=== PATIENT | male | born 1955 | race Caucasian/White ===

== ENCOUNTER 2021-02-13 10:34 | Emergency (ER) | payer MEDICARE, BC ==
[2021-02-13] MEDS ORDERED: Sodium Chloride 0.9% 1000 ML 1,000 ML ONE (11:16)
[2021-02-13] MEDS ORDERED: TYLENOL EXTRA STRENGTH 500 MG ONE (11:16)
[2021-02-13] MEDS ORDERED: Sodium Chloride 0.9% 1000 ML 1,000 ML IV STA (11:19)
[2021-02-13] MEDS ORDERED: TYLENOL 325 MG PO ONE (11:19)
--- NOTE | 2021-02-13 12:02 | XRAY ---
Indication: Fever. Comparison: None Portable apical lordotic chest is slightly underinflated and clear. Heart not enlarged. Bony thorax intact with mild osteopenia and degenerative changes. Impression: Nonacute chest with chronic bony findings.
[2021-02-13 12:13] LABS: Hematocrit 45.2 % (42-50); Hemoglobin 17.3 gm/dl (12.5-18.0); Mean Cell Volume 93.2 fl (78-100); Mean Corpuscular Hemoglobin 35.7 pg (26-32); Mean Corpuscular Hgb Concent. 38.3 g/dl (32-36); Mean Platelet Volume 11.3 fl (7.5-11.0); Platelet Count 87 K/mm3 (150-450); Red Blood Count 4.85 M/mm3 (4.1-5.6); Red Cell Distribution Width 12.5 % (11.5-14.0); White Blood Count 2.9 K/mm3 (4.0-10.5)
[2021-02-13 12:17] VITALS: O2SAT 97
[2021-02-13 12:17] LABS: ALBUMIN 3.7 g/dL (3.5-5.0); ALKALINE PHOSPHATASE 40 U/L (38-126); ANION GAP 15.2 MEQ/L (5-15); BLOOD UREA NITROGEN 21 mg/dL (9-20); CHLORIDE 96 mmol/L (98-107); Calcium 8.9 mg/dL (8.4-10.2); Carbon Dioxide 21 mmol/L (22-30); Creatinine 1 0.98 mg/dL (0.66-1.25); EST GLOMERULAR FILTRATION RATE > 60.0 ML/MIN; Glucose 341 mg/dL (74-106); Potassium 4.3 mmol/L (3.5-5.1); SGOT/AST 62 U/L (17-59); SGPT/ALT 45 U/L (0-50); SODIUM 128 mmol/L (137-145); Total Protein 6.3 g/dL (6.3-8.2)
[2021-02-13 12:28] LABS: INFLUENZA A NEGATIVE (NEGATIVE); INFLUENZA B NEGATIVE (NEGATIVE)
--- NOTE | 2021-02-13 12:37 | ERPHSYRPT ---
- History of Present Illness Time Seen by Provider: 02/13/21 10:39 Source: patient Exam Limitations: no limitations Patient Subjective Stated Complaint: pt here for fever, weakness, and aches for 2 since last friday, Triage Nursing Assessment: pt alert, resp easy, skin w/d/p. abd soft, edema to lower legs, skin w/d/p Physician History: 65 years old male with history of hypertension, hyperlipidemia, diabetes mellitus, unvaccinated against COVID-19 presented in the ER with 4 days history of generalized weakness fatigue tiredness, minimal now productive cough, body aches with decreased oral intake. Denies any abdominal pain nausea vomiting or diarrhea. No chest pain but some soreness. No difficulty breathing. Patient also reports having fever and chills with a T-max of 103 prior to arrival and took some Advil and currently 101. Denies any known sick contact. Timing/Duration: day(s) (4), constant, gradual onset, worse Cough Quality/Degree: moderate, dry cough Possible Cause: unknown cause Modifying Factors: Worsens With: coughing Associated Symptoms: fever, chills, chest pain/soreness, cough, muscle aches, nasal congestion, sore throat, No shortness of breath Allergies/Adverse Reactions: No Known Drug Allergies Allergy (Unverified 02/13/21 11:26) Home Medications: Empagliflozin [Jardiance] 1 ea DAILY 02/13/21 [History] Glipizide/Metformin HCl [Glipizide-Metformin 2.5-250 mg] 1 ea DAILY 02/13/21 [History] Lisinopril 10 mg [Zestril 10 MG] 1 ea DAILY 02/13/21 [History] Hx Tetanus, Diphtheria Vaccination/Date Given: No Hx Influenza Vaccination/Date Given: No Hx Pneumococcal Vaccination/Date Given: No Immunizations Up to Date: Yes Travel Risk - International Travel Have you traveled outside of the country in past 3 weeks: No - Coronavirus Screening Are you exhibiting any of the following symptoms?: Yes Symptoms: Fever, Cough: New Onset, Headaches/Body Aches/Fatigue Close contact with a COVID-19 positive Pt in past 14-21 Days: No - Vaccine Status Have you recieved a Covid-19 vaccination: No - Review of Systems Constitutional: Fever, Chills, Fatigue, Weakness Eyes: No Symptoms Ears, Nose, & Throat: Nose Congestion, Throat Pain Respiratory: Cough, No Dyspnea, No Dyspnea on Exertion (CANO), No Wheezing Cardiac: No Palpitations, No Orthopnea Abdominal/Gastrointestinal: No Symptoms Genitourinary Symptoms: No Symptoms Musculoskeletal: Myalgias Skin: No Symptoms Neurological: No Symptoms Psychological: No Symptoms Endocrine: No Symptoms Hematologic/Lymphatic: No Symptoms Immunological/Allergic: No Symptoms - Past Medical History Pertinent Past Medical History: Yes Cardiac History: Hypertension Endocrine Medical History: Diabetes Type II - Past Surgical History Past Surgical History: No - Social History Smoking Status: Never smoker Exposure to second hand smoke: No Drug Use: none Patient Lives Alone: No - Nursing Vital Signs Nursing Vital Signs: Initial Vital Signs Temperature 102.2 F 02/13/21 11:25 Pulse Rate 84 02/13/21 11:25 Respiratory Rate 18 02/13/21 11:25 Blood Pressure 135/80 02/13/21 11:25 O2 Sat by Pulse Oximetry 93 L 02/13/21 11:25 Pain Scale Pain Intensity 0 - Physical Exam General Appearance: no apparent distress, alert Eye Exam: PERRL/EOMI, eyes nml inspection Ears, Nose, Throat Exam: normal ENT inspection, pharynx normal Neck Exam: normal inspection, non-tender, supple, full range of motion Respiratory Exam: normal breath sounds, lungs clear Cardiovascular Exam: regular rate/rhythm, normal heart sounds Gastrointestinal/Abdomen Exam: soft, normal bowel sounds, No tenderness Back Exam: normal inspection, normal range of motion Extremity Exam: normal inspection, normal range of motion, pelvis stable Neurologic Exam: alert, oriented x 3, cooperative, 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, normal mood/affect Skin Exam: normal color SpO2 Interpretation: normal SpO2: 97 O2 Delivery: Room Air Ordered Tests: Active Orders 24 hr Category Date Time Status EKG-ER Only STAT Care 02/13/21 11:19 Active IV Insertion STAT Care 02/13/21 11:19 Active CHEST 1 VIEW (PORTABLE) Stat Exams 02/13/21 11:19 Completed BLOOD CULTURE Stat Lab 02/13/21 11:40 Received CBC W DIFF Stat Lab 02/13/21 11:15 Completed CMP Stat Lab 02/13/21 11:15 Completed INFLUENZA A+B JONY Stat Lab 02/13/21 11:33 Completed Lactic Acid Stat Lab 02/13/21 11:35 Completed Manual Differential NC Stat Lab 02/13/21 11:15 Completed TROPONIN Q3H Lab 02/13/21 11:15 Completed TROPONIN Q3H Lab 02/13/21 14:30 Ordered TROPONIN Q3H Lab 02/13/21 17:30 Ordered TROPONIN Q3H Lab 02/13/21 20:30 Ordered TROPONIN Q3H Lab 02/13/21 23:30 Ordered UA W/RFX UR CULTURE Stat Lab 02/13/21 11:19 Ordered Medication Summary Discontinued Medications Generic Name Dose Route Start Last Admin Trade Name Shirley PRN Reason Stop Dose Admin Acetaminophen Confirm 02/13/21 11:16 Acetaminophen 500 Mg Tablet Administered 02/13/21 11:17 Dose 1,000 mg .ROUTE .STK-MED ONE Acetaminophen 975 mg 02/13/21 11:19 02/13/21 11:29 Acetaminophen 325 Mg Tablet PO 02/13/21 11:20 975 mg STAT ONE Administration Sodium Chloride Confirm 02/13/21 11:16 Sodium Chloride 0.9% 1000 Ml Administered 02/13/21 11:17 Dose 1,000 mls @ ud .ROUTE .STK-MED ONE Sodium Chloride 1,000 mls @ 499 mls/hr 02/13/21 11:19 02/13/21 11:29 Sodium Chloride 0.9% 1000 Ml IV 02/13/21 13:19 499 mls/hr .Q2H1M STA Administration Lab/Rad Data: Laboratory Result Diagrams 02/13/21 11:15 02/13/21 11:15 Laboratory Results 02/13/21 02/13/21 02/13/21 Range/Units 11:35 11:33 11:15 WBC (4.0-10.5) K/mm3 RBC (4.1-5.6) M/mm3 Hgb (12.5-18.0) gm/dl Hct (42-50) % MCV (78-100) fl MCH (26-32) pg MCHC (32-36) g/dl RDW (11.5-14.0) % Plt Count (150-450) K/mm3 MPV (7.5-11.0) fl Sodium (137-145) mmol/L Potassium (3.5-5.1) mmol/L Chloride (98-107) mmol/L Carbon Dioxide (22-30) mmol/L Anion Gap (5-15) MEQ/L BUN (9-20) mg/dL Creatinine (0.66-1.25) mg/dL Estimated GFR ML/MIN Glucose (74-106) mg/dL Lactic Acid 1.4 (0.4-2.0) Calcium (8.4-10.2) mg/dL Total Bilirubin (0.2-1.3) mg/dL AST (17-59) U/L ALT (0-50) U/L Alkaline Phosphatase (38-126) U/L Troponin I 0.015 (0.000-0.034) ng/mL Serum Total Protein (6.3-8.2) g/dL Albumin (3.5-5.0) g/dL Influenza Type A Ag NEGATIVE (NEGATIVE) Influenza Type B Ag NEGATIVE (NEGATIVE) 02/13/21 02/13/21 Range/Units 11:15 11:15 WBC 2.9 L (4.0-10.5) K/mm3 RBC 4.85 (4.1-5.6) M/mm3 Hgb 17.3 (12.5-18.0) gm/dl Hct 45.2 (42-50) % MCV 93.2 (78-100) fl MCH 35.7 H (26-32) pg MCHC 38.3 H (32-36) g/dl RDW 12.5 (11.5-14.0) % Plt Count 87 L (150-450) K/mm3 MPV 11.3 H (7.5-11.0) fl Sodium 128 L (137-145) mmol/L Potassium 4.3 (3.5-5.1) mmol/L Chloride 96 L (98-107) mmol/L Carbon Dioxide 21 L (22-30) mmol/L Anion Gap 15.2 H (5-15) MEQ/L BUN 21 H (9-20) mg/dL Creatinine 0.98 (0.66-1.25) mg/dL Estimated GFR > 60.0 ML/MIN Glucose 341 H (74-106) mg/dL Lactic Acid (0.4-2.0) Calcium 8.9 (8.4-10.2) mg/dL Total Bilirubin 0.60 (0.2-1.3) mg/dL AST 62 H (17-59) U/L ALT 45 (0-50) U/L Alkaline Phosphatase 40 (38-126) U/L Troponin I (0.000-0.034) ng/mL Serum Total Protein 6.3 (6.3-8.2) g/dL Albumin 3.7 (3.5-5.0) g/dL Influenza Type A Ag (NEGATIVE) Influenza Type B Ag (NEGATIVE) - Progress Progress: improved Air Movement: good Progress Note: 02/13/21 13:46 65 years old is evaluated for multiple flulike symptoms with decreased oral intake. Given fluid bolus and Tylenol and temperature improved to 98. Patient is feeling better on reevaluation. CBC consistent with Covid and chemistry profile shows some dehydration. Patient is not having any abdominal pain nausea or vomiting. No difficulty breathing and maintaining oxygen saturation at room air Rela around 95%. Patient is unvaccinated and I have offered him antibody infusion therapy which he refused. I will obtain Covid 19 test outpatient. Patient is advised to follow contact/droplet precautions and outpatient follow- up with primary care. Discussed signs symptoms of worsening needing return to ER which he seems understanding. Stable for discharge at this point. Blood Culture(s) Obtained: Yes Antibiotics given: No Counseled pt/family regarding: lab results, diagnosis, need for follow-up, rad results - Departure Departure Disposition: Home Clinical Impression: COVID-19, Viral syndrome, Hyperglycemia, Dehydration Condition: Stable Critical Care Time: No Referrals: DINO DEL VALLE MD [Primary Care Provider] - Follow up/PCP as directed (In1- 2 days for reevaluation.) Instructions: Fever, Adult (DC), Coronavirus Disease 2019 (COVID-19) (DC) Additional Instructions: Monitor your blood sugar regularly, keep a log and follow-up with primary care. Drink plenty of fluids. Take Tylenol as needed for aches and pains/fev er/chills. Return to ER if having worsening cough, difficulty breathing or inability to have much oral intake. Follow-up with primary care for reevaluation in 1 to 2 days.
[2021-02-13 13:08] VITALS: BP 102/61; PULSE 75
[2021-02-13] MEDS ORDERED: HUMULIN R SQ ONE (13:49)
[2021-02-13] MEDS ORDERED: HUMULIN R ONE (13:56)
[2021-02-13 14:24] LABS: BAND 7 % (0.0-2.0); Lymphocytes 16 % (24-44); Monocyte 7 % (0.0-12.0); Neutrophils 70 % (36.-66.); Total Cells Counted 100
[2021-02-13 14:25] LABS: Platelet Estimate DECREASED (NORMAL)
== END 2021-02-13 15:17 | disposition home or self-care (01) ==
LOC: ED 10:34
DX: U07.1 COVID-19 (principal); E11.65 Type 2 diabetes mellitus with hyperglycemia; Z79.84 Long term (current) use of oral hypoglycemic drugs; E86.0 Dehydration; R05.9 Cough, unspecified; R50.9 Fever, unspecified; I10 Essential (primary) hypertension
CPT/HCPCS: 36000; 36415; 71045; 80053; 82947; 83605; 84484; 85025; 87040; 87400; 93005; 96360; 96361; 96372; 99284; U0003; J1815; A9270-GY

== ENCOUNTER 2021-02-19 01:51 | Inpatient (IN) | payer MEDICARE, BC ==
[2021-02-19] MEDS ORDERED: Sodium Chloride 0.9% 1000 ML 1,000 ML IV STA (01:52)
[2021-02-19] MEDS ORDERED: TYLENOL EXTRA STRENGTH 500 MG ONE (02:03)
[2021-02-19] MEDS ORDERED: TYLENOL EXTRA STRENGTH 500 MG PO ONE (02:08)
[2021-02-19] MEDS ORDERED: Sodium Chloride 0.9% 1000 ML 1,000 ML ONE (02:08)
--- NOTE | 2021-02-19 02:16 | ERPHSYRPT ---
- History of Present Illness Time Seen by Provider: 02/19/21 02:12 Source: patient Exam Limitations: no limitations Patient Subjective Stated Complaint: shortness of breath, weakness Triage Nursing Assessment: Patient drowsy but arouses easily. Answers some but not all questions appropriately. Oriented to person and place. Skin color pale and skin clammy. Dry mucous membranes. Lung sounds diminished throughout, coarse in lower lobes. Patient breathing shallow. Physician History: Patient is a 65-year-old male who presents with a complaint of shortness of breath. He was seen in the ER and diagnosed with Covid on Friday then on he received monoclonal antibody therapy and infusion he has had increasing shortness of breath lethargy fever and cough. His O2 sats were 88% at home. Timing/Duration: day(s) (5) Cough Quality/Degree: severe, dry cough Possible Cause: no prior episodes Modifying Factors: Improves With: coughing, deep breath, oxygen Associated Symptoms: fever, cough, headache, shortness of breath Allergies/Adverse Reactions: No Known Drug Allergies Allergy (Verified 02/19/21 01:52) Home Medications: Empagliflozin [Jardiance] 1 ea DAILY 02/13/21 [History] Glipizide/Metformin HCl [Glipizide-Metformin 2.5-250 mg] 1 ea DAILY 02/13/21 [History] Lisinopril 10 mg [Zestril 10 MG] 1 ea DAILY 02/13/21 [History] Hx Tetanus, Diphtheria Vaccination/Date Given: No Hx Influenza Vaccination/Date Given: No Hx Pneumococcal Vaccination/Date Given: No Travel Risk - International Travel Have you traveled outside of the country in past 3 weeks: No - Coronavirus Screening Are you exhibiting any of the following symptoms?: Yes Symptoms: Cough: New Onset, Shortness of Breath - Vaccine Status Have you recieved a Covid-19 vaccination: No - Review of Systems Constitutional: Fever, Chills Eyes: No Symptoms Ears, Nose, & Throat: No Symptoms Respiratory: Cough, Dyspnea Cardiac: No Symptoms, No Chest Pain, No Edema, No Syncope Abdominal/Gastrointestinal: No Symptoms, No Abdominal Pain, No Nausea, No Vomi ting, No Diarrhea Genitourinary Symptoms: No Symptoms, No Dysuria Musculoskeletal: Arthralgias, Myalgias, No Back Pain, No Neck Pain Skin: No Symptoms, No Rash Neurological: Headache, No Dizziness, No Focal Weakness, No Sensory Changes Psychological: No Symptoms Endocrine: No Symptoms Hematologic/Lymphatic: No Symptoms Immunological/Allergic: No Symptoms All Other Systems: Reviewed and Negative - Past Medical History Pertinent Past Medical History: Yes Cardiac History: Hypertension Endocrine Medical History: Diabetes Type II - Past Surgical History Past Surgical History: No - Social History Smoking Status: Never smoker Exposure to second hand smoke: No Drug Use: none Patient Lives Alone: No - Nursing Vital Signs Nursing Vital Signs: Initial Vital Signs Temperature 100.4 F 02/19/21 01:52 Pulse Rate 120 H 02/19/21 01:52 Respiratory Rate 40 H 02/19/21 01:52 Blood Pressure 136/84 02/19/21 01:52 O2 Sat by Pulse Oximetry 87 L 02/19/21 01:52 Pain Scale Pain Intensity 0 - Physical Exam General Appearance: severe distress, lethargy Eye Exam: PERRL/EOMI, eyes nml inspection Ears, Nose, Throat Exam: normal ENT inspection, dry mucous membranes Neck Exam: normal inspection, non-tender, supple Respiratory Exam: diminished breath sounds, crackles/rales Cardiovascular Exam: regular rate/rhythm, normal heart sounds Gastrointestinal/Abdomen Exam: soft, normal bowel sounds, No tenderness Back Exam: normal inspection, normal range of motion Extremity Exam: normal inspection, normal range of motion Neurologic Exam: alert, oriented x 3, depressed mood/affect Skin Exam: normal color, warm, dry SpO2 Interpretation: hypoxic, O2 applied SpO2: 87 O2 Delivery: BiPap/CPAP - Course Nursing assessment & vital signs reviewed: Yes EKG Interpreted by Me: RATE ([id number]), Sinus Tach, NORMAL AXIS, prolonged QT interval, Non-specific ST Changes - Radiology Exams Chest X-ray Interpretation: Interpreted by me, Other (Extensive bilateral opacities) Ordered Tests: Active Orders 24 hr Category Date Time Status EKG-ER Only STAT Care 02/19/21 01:52 Active Dior [Catheter-[place] Dior] STAT Care 02/19/21 02:48 Active IV Insertion STAT Care 02/19/21 01:52 Completed CHEST 1 VIEW (PORTABLE) Stat Exams 02/19/21 01:53 Taken CBC W DIFF Stat Lab 02/19/21 02:21 Completed CMP Stat Lab 02/19/21 02:21 Received D-DIMER QUANTITATIVE Stat Lab 02/19/21 02:21 Completed Lactic Acid Stat Lab 02/19/21 02:50 Completed MAGNESIUM Stat Lab 02/19/21 02:21 Received Manual Differential NC Stat Lab 02/19/21 02:21 Completed NT PRO BNP Stat Lab 02/19/21 02:21 Received PROTIME WITH INR Stat Lab 02/19/21 02:21 Completed TROPONIN Q3H Lab 02/19/21 02:21 Received TROPONIN Q3H Lab 02/19/21 05:00 Ordered TROPONIN Q3H Lab 02/19/21 08:00 Ordered TROPONIN Q3H Lab 02/19/21 11:00 Ordered TROPONIN Q3H Lab 02/19/21 14:00 Ordered UA W/RFX UR CULTURE Stat Lab 02/19/21 01:53 Ordered BiPap/CPAP STAT RT 02/19/21 03:02 Active Respiratory Therapy Consult ROUTINE RT 02/19/21 01:56 Completed Medication Summary Discontinued Medications Generic Name Dose Route Start Last Admin Trade Name Freq PRN Reason Stop Dose Admin Acetaminophen Confirm 02/19/21 02:03 Acetaminophen 500 Mg Tablet Administered 02/19/21 02:04 Dose 1,000 mg .ROUTE .STK-MED ONE Acetaminophen 1,000 mg 02/19/21 02:08 02/19/21 02:10 Acetaminophen 500 Mg Tablet PO 02/19/21 02:09 1,000 mg ONCE ONE Administration Sodium Chloride 1,000 mls @ 999 mls/hr 02/19/21 01:52 02/19/21 02:10 Sodium Chloride 0.9% 1000 Ml IV 02/19/21 02:52 999 mls/hr .Q1H1M STA Administration Sodium Chloride Confirm 02/19/21 02:08 Sodium Chloride 0.9% 1000 Ml Administered 02/19/21 02:09 Dose 1,000 mls @ ud .ROUTE .STK-MED ONE Lorazepam 1 mg 02/19/21 02:17 02/19/21 02:23 Lorazepam 2 Mg/1 Ml 2 Mg Vial IV 02/19/21 02:18 1 mg STAT ONE Administration Lorazepam Confirm 02/19/21 02:22 Lorazepam 2 Mg/1 Ml 2 Mg Vial Administered 02/19/21 02:23 Dose 2 mg .ROUTE .STK-MED ONE Lab/Rad Data: Laboratory Result Diagrams 02/19/21 02:21 Laboratory Results 02/19/21 02/19/21 02/19/21 Range/Units 02:50 02:21 02:21 WBC 7.3 (4.0-10.5) K/mm3 RBC 4.82 (4.1-5.6) M/mm3 Hgb 15.4 (12.5-18.0) gm/dl Hct 46.4 (42-50) % MCV 96.3 (78-100) fl MCH 32.0 (26-32) pg MCHC 33.2 (32-36) g/dl RDW 13.1 (11.5-14.0) % Plt Count 131 L (150-450) K/mm3 MPV 10.6 (7.5-11.0) fl PT 17.4 H (9.4-12.5) SECONDS INR 1.47 (0.8-3.0) D-Dimer H* (215-500) ng/mL Lactic Acid 4.0 H (0.4-2.0) - Progress Progress: unchanged Air Movement: poor Blood Culture(s) Obtained: Yes Antibiotics given: No Discussed with Dr.: Other (Dr Cochran) Will see patient in: hospital (full admit) - Departure Departure Disposition: In-patient Admission Clinical Impression: Pneumonia due to COVID-19 virus Condition: Serious Critical Care Time: No Referrals: DINO DEL VALLE MD [Primary Care Provider] - Follow up/PCP as directed
[2021-02-19] MEDS ORDERED: Ativan 2 MG/1 ML VIAL IV ONE (02:17)
[2021-02-19] MEDS ORDERED: Ativan 2 MG/1 ML VIAL ONE (02:22)
[2021-02-19 02:25] LABS: Hematocrit 46.4 % (42-50); Hemoglobin 15.4 gm/dl (12.5-18.0); Mean Cell Volume 96.3 fl (78-100); Mean Corpuscular Hgb Concent. 33.2 g/dl (32-36); Mean Platelet Volume 10.6 fl (7.5-11.0); Platelet Count 131 K/mm3 (150-450); Red Blood Count 4.82 M/mm3 (4.1-5.6); Red Cell Distribution Width 13.1 % (11.5-14.0); White Blood Count 7.3 K/mm3 (4.0-10.5)
[2021-02-19 02:35] LABS: INR 1.47 (0.8-3.0); PROTIME 17.4 SECONDS (9.4-12.5)
[2021-02-19 02:58] LABS: ALBUMIN 3.3 g/dL (3.5-5.0); ALKALINE PHOSPHATASE 51 U/L (38-126); ANION GAP 19.3 MEQ/L (5-15); BLOOD UREA NITROGEN 19 mg/dL (9-20); CHLORIDE 96 mmol/L (98-107); Calcium 8.7 mg/dL (8.4-10.2); Carbon Dioxide 22 mmol/L (22-30); Creatinine 1 1.05 mg/dL (0.66-1.25); EST GLOMERULAR FILTRATION RATE > 60.0 ML/MIN; Glucose 214 mg/dL (74-106); MAGNESIUM 2.3 mg/dL (1.6-2.3); NT PRO BNP 1290 pg/mL (0-900); Potassium 4.6 mmol/L (3.5-5.1); SGOT/AST 79 U/L (17-59); SGPT/ALT 47 U/L (0-50); SODIUM 132 mmol/L (137-145); Total Protein 6.2 g/dL (6.3-8.2)
[2021-02-19 04:05] LABS: Eosinophil 1 % (0.00-3.0); Lymphocytes 5 % (24-44); Monocyte 4 % (0.0-12.0); Neutrophils 90 % (36.-66.); Platelet Estimate DECREASED (NORMAL); Total Cells Counted 100
[2021-02-19 04:16] LABS: Appearance CLEAR (CLEAR); Bilirubin NEGATIVE (NEGATIVE); Blood MODERATE Ery/ul (0-5); Glucose >=500 mg/dL (NEGATIVE); Ketones SMALL (NEGATIVE); Leukocyte Esterase NEGATIVE (NEGATIVE); Mucus SLIGHT /HPF (NEGATIVE); Nitrite NEGATIVE (NEGATIVE); Protein,Urine Dip 100 (Negative); RBC 0-2 /HPF (0-2); Specific Gravity 1.032 (1.005-1.025); Urobilinogen 4 mg/dL (0-1); WBC 0-2 /HPF (0-5)
[2021-02-19] MEDS ORDERED: TYLENOL EXTRA STRENGTH 500 MG PO PRN (04:40)
[2021-02-19] MEDS ORDERED: Zofran 4 MG/2 ML VIAL IV PRN (04:40)
[2021-02-19] MEDS ORDERED: HYDROCODONE-CHLORPHEN ER SUSP PO PRN (04:41)
[2021-02-19] MEDS ORDERED: Sodium Chloride 0.9% 250 ML 250 ML IV ONE (04:49)
[2021-02-19] MEDS ORDERED: REMDESIVIR IV ONE (04:49)
[2021-02-19] MEDS ORDERED: REMDESIVIR 200 MG in Sodium Chloride 0.9% 250 ML 250 ML IV ONE (05:00)
[2021-02-19] MEDS ORDERED: ENOXAPARIN SODIUM SQ SCH (05:00)
[2021-02-19] MEDS: Sodium Chloride 0.9% 1000 ML 1,000 ML IV SCH ×2 (05:39→13:44)
[2021-02-19] MEDS: Ativan 2 MG/1 ML VIAL IV PRN ×3 (06:17→21:15)
[2021-02-19] MEDS ORDERED: Ativan 1 MG PO PRN (07:38)
--- NOTE | 2021-02-19 09:21 | XRAY ---
Indication: Cough and hypoxia. Positive Covid 19. Comparison: February 13, 2021. Portable chest demonstrates new moderate diffuse bilateral patchy airspace disease without consolidation/large effusion. Heart not enlarged. Bony thorax intact again with osteopenia and degenerative changes.
[2021-02-19] MEDS ORDERED: Decadron 4 MG INJ IV SCH (10:00)
[2021-02-19] MEDS: OLUMIANT PO SCH (10:00)
[2021-02-19] MEDS ORDERED: MEDICATION INTERVENTION MC SCH (10:30)
[2021-02-19] MEDS: DECADRON 10MG INJ. IV SCH (10:31)
[2021-02-19] MEDS ORDERED: METFORMIN HCL PO SCH (11:30)
[2021-02-19] MEDS ORDERED: GLIPIZIDE PO SCH (11:30)
[2021-02-19] MEDS ORDERED: [UNRECOGNIZED DRUG - OTHER] PO SCH (11:30)
[2021-02-19] MEDS: Glucophage 500 MG PO SCH (12:00)
[2021-02-19] MEDS: Glucotrol 5 MG PO SCH (12:00)
--- NOTE | 2021-02-19 13:42 | HP ---
CHIEF COMPLAINT: Shortness of breath, fatigue. HISTORY OF PRESENT ILLNESS: The patient is a 65-year-old white male who presented to the emergency room after midnight. He had the above problems. For three to four days he did get recombinant antibodies from the emergency room doctor's notes. The patient is somnolent and I cannot get any history from him partially from fatigue and Ativan. He came in with a temperature of 102F. O2 saturations in the 80's which was fixed when he got on BiPAP. He did not get the vaccine. On 02/15/2021, four days ago, he did get some antibody infusion here. He denied having any pain. He did not have influenza vaccine or the COVID vaccine. He has long standing diabetes mellitus, hypertension. No coronary artery disease. MEDICATIONS: Jardiance, lisinopril, glipizide/metformin. ALLERGIES: NKDA. PAST MEDICAL HISTORY: Hypertension, diabetes mellitus. REVIEW OF SYSTEMS: HEENT: He had no problems hearing or seeing. CHEST: Normally no shortness of breath. He is a nonsmoker. No pneumonia. ABDOMEN: No nausea or vomiting. PSYCH: No symptoms. NEUROLOGIC: Headache. No focal changes. PHYSICAL EXAMINATION: The patient is responding when I look in his eyes this morning at 0800 hours. However, he has been sedated with Ativan after being up all night. VITAL SIGNS: Temperature 100F, pulse 100, respiratory rate set by his BiPAP. Blood pressure is low at 90/60. His pulse ox is about 95%. GENERAL: The patient looks much younger than 65. He looks sturdy and strong although he is lethargic and in no distress. HEENT: Pupils equal and reactive to light. NECK: Supple without adenopathy. CHEST: Clear. CVS: No murmurs or gallops. ABDOMEN: Soft, slightly obese. No masses. EXTREMITIES: No edema. LAB DATA AND TESTS: Nonspecific ST-wave changes on his EKG. White count 7,000, hemoglobin 15. PT is elevated at 17.4. D-dimer is about 20,000. Lactic acid 4.0. Chest x-ray shows bilateral infiltrates typical of COVID. IMPRESSION: The patient is moderately severe with: 1) COVID pneumonia with rather severe hypoxia. 2) Diabetes mellitus. 3) Hypertension presently hypotensive probably due to dehydration. PLAN: We are going to give a little bit more fluids before we start him on pressors. Start all of the COVID medications, control his blood sugar. PROGNOSIS: Fair.
[2021-02-19] MEDS: HUMALOG SQ PRN (16:20)
[2021-02-19] MEDS: ENOXAPARIN SODIUM SQ SCH (21:15)
[2021-02-20] MEDS: Ativan 2 MG/1 ML VIAL IV PRN ×5 (01:45→21:03)
[2021-02-20 06:39] LABS: Hematocrit 43.9 % (42-50); Hemoglobin 14.4 gm/dl (12.5-18.0); Mean Cell Volume 97.6 fl (78-100); Mean Corpuscular Hgb Concent. 32.8 g/dl (32-36); Mean Platelet Volume 11.7 fl (7.5-11.0); Platelet Count 133 K/mm3 (150-450); Red Cell Distribution Width 13.2 % (11.5-14.0); White Blood Count 9.1 K/mm3 (4.0-10.5)
[2021-02-20 07:06] LABS: ALBUMIN 3.1 g/dL (3.5-5.0); ALKALINE PHOSPHATASE 57 U/L (38-126); ANION GAP 15.3 MEQ/L (5-15); BLOOD UREA NITROGEN 28 mg/dL (9-20); CHLORIDE 105 mmol/L (98-107); Calcium 8.4 mg/dL (8.4-10.2); Carbon Dioxide 22 mmol/L (22-30); Creatinine 1 0.89 mg/dL (0.66-1.25); EST GLOMERULAR FILTRATION RATE > 60.0 ML/MIN; Glucose 201 mg/dL (74-106); NT PRO BNP 1370 pg/mL (0-900); Potassium 4.2 mmol/L (3.5-5.1); SGOT/AST 49 U/L (17-59); SGPT/ALT 38 U/L (0-50); SODIUM 137 mmol/L (137-145); Total Protein 6.2 g/dL (6.3-8.2)
[2021-02-20] MEDS: Glucotrol 5 MG PO SCH (08:54)
[2021-02-20] MEDS: Glucophage 500 MG PO SCH (08:54)
[2021-02-20] MEDS ORDERED: MORPHINE SULFATE 4 MG INJ IV ONE (09:19)
[2021-02-20] MEDS ORDERED: Lasix 20 MG/2 ML IV ONE (10:00)
[2021-02-20] MEDS ORDERED: NON-FORMULARY ITEM (Empagliflozin [Jardiance] 10 MG Tablet) PO SCH (10:00)
[2021-02-20] MEDS: DECADRON 10MG INJ. IV SCH (10:56)
[2021-02-20] MEDS: OLUMIANT PO SCH (10:57)
[2021-02-20] MEDS: REMDESIVIR 100 MG in Sodium Chloride 0.9% 100 ML BAG 100 ML IV SCH (11:37)
[2021-02-20] MEDS: HUMALOG SQ PRN ×2 (17:05)
[2021-02-20] MEDS: MORPHINE SULFATE 4 MG INJ IV PRN ×2 (18:56→23:11)
[2021-02-20] MEDS: ENOXAPARIN SODIUM SQ SCH (22:57)
[2021-02-21] MEDS: MORPHINE SULFATE 4 MG INJ IV PRN ×5 (03:30→22:06)
[2021-02-21] MEDS: Ativan 2 MG/1 ML VIAL IV PRN ×6 (05:39→23:49)
[2021-02-21 06:23] LABS: ALBUMIN 2.8 g/dL (3.5-5.0); ALKALINE PHOSPHATASE 69 U/L (38-126); ANION GAP 10.6 MEQ/L (5-15); BLOOD UREA NITROGEN 36 mg/dL (9-20); CHLORIDE 109 mmol/L (98-107); Calcium 8.8 mg/dL (8.4-10.2); Carbon Dioxide 27 mmol/L (22-30); Creatinine 1 0.83 mg/dL (0.66-1.25); EST GLOMERULAR FILTRATION RATE > 60.0 ML/MIN; Glucose 267 mg/dL (74-106); NT PRO BNP 1070 pg/mL (0-900); Potassium 4.2 mmol/L (3.5-5.1); SGOT/AST 41 U/L (17-59); SGPT/ALT 32 U/L (0-50); SODIUM 142 mmol/L (137-145); Total Protein 5.9 g/dL (6.3-8.2)
[2021-02-21 06:25] LABS: Absolute Neutrophil Ct (ANC) 7.09 (1.4-6.9); Basophil (Absolute #) 0.01 (0-0.4); Eosinophil (Absolute #) 0 (0-0.5); Hematocrit 46.4 % (42-50); Hemoglobin 15.4 gm/dl (12.5-18.0); Lymphocyte (Absolute #) 0.34 (1.0-4.6); Lymphocytes % 4.4 % (24.0-44.0); Mean Cell Volume 97.3 fl (78-100); Mean Corpuscular Hemoglobin 32.3 pg (26-32); Mean Corpuscular Hgb Concent. 33.2 g/dl (32-36); Mean Platelet Volume 11.7 fl (7.5-11.0); Monocyte (Absolute #) 0.23 (0.0-1.3); Neutrophil % 92.5 % (36.0-66.0); Platelet Count 85 K/mm3 (150-450); Red Blood Count 4.77 M/mm3 (4.1-5.6); Red Cell Distribution Width 13.6 % (11.5-14.0); White Blood Count 7.7 K/mm3 (4.0-10.5)
[2021-02-21] MEDS: HUMALOG SQ PRN ×4 (06:35→23:57)
[2021-02-21] MEDS ORDERED: ENOXAPARIN SODIUM SQ SCH (07:00)
[2021-02-21 08:11] LABS: A-aADO2 606; ABG HEMOGLOBIN 16.3; ABG POTASSIUM 4.3 (3.5-5.1); ABG SITE LEFT BRACHIAL; ARTERIAL BLD GAS TIDAL VOLUME 500 cc; ARTERIAL BLOOD GAS BASE EXCESS 0.7 (-2.0-2.0); ARTERIAL BLOOD GAS FIO2 100 %; ARTERIAL BLOOD GAS PCO2 40 mmHg (35-45); ARTERIAL BLOOD GAS PO2 57 mmHg (75-100); ARTERIAL BLOOD GAS VENT MODE BiPAP; ARTERIAL BLOOD GAS pH 7.41 (7.35-7.45); HCO3- 25.4 (22-28); HGB O2 SAT 87.3 g/dF (94-100); Methhemoglobin 0.9 % (1.4-1.5)
[2021-02-21] MEDS: Glucotrol 5 MG PO SCH (08:34)
[2021-02-21] MEDS: Glucophage 500 MG PO SCH (08:34)
--- NOTE | 2021-02-21 08:39 | XRAY ---
Indication: Covid 19 pneumonia. Comparison: February 19, 2021. Portable chest again demonstrates moderate diffuse bilateral airspace disease with minimal clearing in right mid to upper lung. Heart and mediastinal structures within normal limits for AP portable technique. No new cardiopulmonary abnormalities.
[2021-02-21] MEDS: OLUMIANT PO SCH (09:28)
[2021-02-21] MEDS: DECADRON 10MG INJ. IV SCH (09:28)
[2021-02-21] MEDS: Sodium Chloride 0.9% 1000 ML 1,000 ML IV SCH (09:53)
[2021-02-21] MEDS: REMDESIVIR 100 MG in Sodium Chloride 0.9% 100 ML BAG 100 ML IV SCH (10:12)
[2021-02-21] MEDS: solu-MEDROL IV SCH ×2 (17:41→23:43)
[2021-02-21] MEDS: ENOXAPARIN SODIUM SQ SCH (20:15)
[2021-02-22] MEDS: Ativan 2 MG/1 ML VIAL IV PRN ×6 (02:29→23:12)
[2021-02-22] MEDS: MORPHINE SULFATE 4 MG INJ IV PRN ×5 (03:56→20:53)
[2021-02-22] MEDS ORDERED: Ativan 2 MG/1 ML VIAL ONE (05:46)
[2021-02-22 06:10] LABS: Absolute Neutrophil Ct (ANC) 5.98 (1.4-6.9); Basophil (Absolute #) 0.02 (0-0.4); Eosinophil (Absolute #) 0 (0-0.5); Hematocrit 47.7 % (42-50); Hemoglobin 15.6 gm/dl (12.5-18.0); Lymphocyte (Absolute #) 0.29 (1.0-4.6); Lymphocytes % 4.5 % (24.0-44.0); Mean Cell Volume 98.8 fl (78-100); Mean Corpuscular Hemoglobin 32.3 pg (26-32); Mean Corpuscular Hgb Concent. 32.7 g/dl (32-36); Mean Platelet Volume 12.2 fl (7.5-11.0); Monocytes % 3.1 % (0.0-12.0); Neutrophil % 92.1 % (36.0-66.0); Platelet Count 91 K/mm3 (150-450); Red Blood Count 4.83 M/mm3 (4.1-5.6); Red Cell Distribution Width 13.8 % (11.5-14.0); White Blood Count 6.5 K/mm3 (4.0-10.5)
[2021-02-22] MEDS: solu-MEDROL IV SCH ×4 (06:12→23:12)
[2021-02-22] MEDS: HUMALOG SQ PRN ×4 (06:13→23:13)
[2021-02-22 06:22] LABS: ALBUMIN 2.7 g/dL (3.5-5.0); ALKALINE PHOSPHATASE 78 U/L (38-126); ANION GAP 8.1 MEQ/L (5-15); BLOOD UREA NITROGEN 37 mg/dL (9-20); CHLORIDE 115 mmol/L (98-107); Calcium 8.8 mg/dL (8.4-10.2); Carbon Dioxide 30 mmol/L (22-30); Creatinine 1 0.76 mg/dL (0.66-1.25); EST GLOMERULAR FILTRATION RATE > 60.0 ML/MIN; Glucose 209 mg/dL (74-106); NT PRO BNP 598 pg/mL (0-900); Potassium 3.9 mmol/L (3.5-5.1); SGOT/AST 37 U/L (17-59); SGPT/ALT 27 U/L (0-50); SODIUM 149 mmol/L (137-145); Total Protein 5.9 g/dL (6.3-8.2)
[2021-02-22] MEDS: Glucotrol 5 MG PO SCH (08:06)
[2021-02-22] MEDS: Glucophage 500 MG PO SCH (08:06)
--- NOTE | 2021-02-22 09:07 | CONS ---
CONSULT DATE: 02/21/2021 REASON FOR CONSULT: Evaluation of shortness of breath, hypoxic respiratory failure. HISTORY: Faizan Villanueva is a 65-year-old male who had been admitted to [facility] with complaints of shortness of breath. The patient had tested positive for COVID and is currently receiving therapy in guidelines with current acceptable protocol including Remdesivir, steroids along with oral Olumiant. He has remained BiPAP dependent requiring FIO2 and on 100% FIO2 AVAPS mode. His current saturation is 95%. The patient has had lower oxygen saturation during the day. The patient's chest x-ray does show bilateral infiltrates predominantly involving left lung. PAST MEDICAL HISTORY: Positive for history of hypertension and diabetes mellitus. PAST SURGICAL HISTORY: Not available. PERSONAL AND SOCIAL HISTORY: MEDICATIONS: Home and current medications are reviewed. ALLERGIES: NKDA. LABORATORY DATA AND TESTS: I have personally reviewed radiology tests. ASSESSMENT: This is a 65-year-old male admitted with: 1) Acute severe hypoxic respiratory failure. 2) COVID-19 with viral pneumonia. 3) Increasing D-Dimer. 4) History of hypertension. 5) History of diabetes. RECOMMENDATIONS: 1) I agree with present treatment. 2) Will switch Decadron to Solu-Medrol 80 mg every six hours to see if this helps reduce inflammation. 3) Increase anticoagulation with Lovenox 1 mg/kg subcu every 12 hours. Await clinical improvement. The patient's pulmonary status is marginal and may require intubation. Discussed with respiratory therapy and nursing staff present at bedside. Thank you, Dr. Manzanares, for allowing me to participate in the care of this patient.
[2021-02-22] MEDS: OLUMIANT PO SCH (09:10)
[2021-02-22] MEDS: ENOXAPARIN SODIUM SQ SCH ×2 (09:10→20:53)
[2021-02-22] MEDS: REMDESIVIR 100 MG in Sodium Chloride 0.9% 100 ML BAG 100 ML IV SCH (09:10)
--- NOTE | 2021-02-22 12:47 | PROG NOTE ---
DATE: 02/22/2021 Events noted. HISTORY: The patient remains BiPAP dependent. He has received Ativan to keep him calm. Currently he is still asleep, when awake continues to get restless attempting to pull at the mask. FIO2 requirements have remained 100% with saturations now in 90%. PHYSICAL EXAMINATION: Vital signs noted. HEENT: Normocephalic. Oral exam limited. BiPAP mask in place. CVS: First and second heart sounds are normal, regular, rhythmic. RESPIRATORY: Shows diminished breath sounds. Crackles are heard at base. ABDOMEN: Soft. EXTREMITIES: No edema is noted. LABORATORY DATA AND TESTS: Labs reviewed. Glucose 209, sodium 149. D-dimer [id number]. ASSESSMENT: This is a 65-year-old male admitted with: 1) Acute severe hypoxic respiratory failure. 2) COVID-19 with viral pneumonia. 3) History of diabetes mellitus and coagulopathy with elevated D-dimer likely from COVID. RECOMMENDATIONS: 1) Continue present therapy. The patient's oxygenation is gradually declining and is likely going to need intubation in the next 24 hours. Discussed with respiratory therapy. 2) Continue other supportive care. 3) Add patient on TPN, pharmacy to dose as reasonable to get enough caloric intake. 4) Anticoagulation was increased yesterday. I had a discussion with the patient's over the phone yesterday evening and explained to her regarding condition and likely guarded to poor prognosis.
[2021-02-22] MEDS ORDERED: CLINIMIX E IV SCH ×4 (14:00)
[2021-02-22] MEDS ORDERED: [UNRECOGNIZED DRUG - OTHER] IV SCH ×4 (14:00)
[2021-02-22] MEDS ORDERED: FOLNATE IV SCH ×4 (14:00)
[2021-02-22] MEDS: [UNRECOGNIZED DRUG - OTHER] IV SCH ×5 (14:56)
[2021-02-22] MEDS: FOLNATE IV SCH ×5 (14:56)
[2021-02-22] MEDS: CLINIMIX E IV SCH ×5 (14:56)
[2021-02-23] MEDS: MORPHINE SULFATE 4 MG INJ IV PRN ×5 (01:47→21:27)
[2021-02-23] MEDS: solu-MEDROL IV SCH ×3 (06:08→17:13)
[2021-02-23] MEDS: HUMALOG SQ PRN ×3 (06:09→17:58)
[2021-02-23 06:25] LABS: Basophil (Absolute #) 0.02 (0-0.4); Eosinophil % 0.1 % (0.00-5.0); Eosinophil (Absolute #) 0.01 (0-0.5); Hematocrit 47.9 % (42-50); Hemoglobin 15.1 gm/dl (12.5-18.0); Lymphocyte (Absolute #) 0.25 (1.0-4.6); Lymphocytes % 3.6 % (24.0-44.0); Mean Cell Volume 102.1 fl (78-100); Mean Corpuscular Hemoglobin 32.2 pg (26-32); Mean Corpuscular Hgb Concent. 31.5 g/dl (32-36); Mean Platelet Volume 11.6 fl (7.5-11.0); Monocyte (Absolute #) 0.18 (0.0-1.3); Monocytes % 2.6 % (0.0-12.0); Neutrophil % 93.4 % (36.0-66.0); Platelet Count 120 K/mm3 (150-450); Red Blood Count 4.69 M/mm3 (4.1-5.6)
[2021-02-23 06:48] LABS: ALBUMIN 2.6 g/dL (3.5-5.0); ALKALINE PHOSPHATASE 80 U/L (38-126); ANION GAP 10.7 MEQ/L (5-15); BLOOD UREA NITROGEN 44 mg/dL (9-20); CHLORIDE 117 mmol/L (98-107); Calcium 8.8 mg/dL (8.4-10.2); Carbon Dioxide 28 mmol/L (22-30); Creatinine 1 0.88 mg/dL (0.66-1.25); EST GLOMERULAR FILTRATION RATE > 60.0 ML/MIN; Glucose 313 mg/dL (74-106); NT PRO BNP 823 pg/mL (0-900); Potassium 4.6 mmol/L (3.5-5.1); SGOT/AST 37 U/L (17-59); SGPT/ALT 25 U/L (0-50); Total Protein 5.8 g/dL (6.3-8.2)
[2021-02-23 06:53] LABS: SODIUM 151 mmol/L (137-145)
[2021-02-23] MEDS: Ativan 2 MG/1 ML VIAL IV PRN ×5 (07:41→22:58)
[2021-02-23] MEDS: Glucotrol 5 MG PO SCH (08:38)
[2021-02-23] MEDS: Glucophage 500 MG PO SCH (08:38)
[2021-02-23] MEDS ORDERED: APRESOLINE 20 MG/ML INJ IV ONE (09:46)
[2021-02-23] MEDS: REMDESIVIR 100 MG in Sodium Chloride 0.9% 100 ML BAG 100 ML IV SCH (10:54)
[2021-02-23] MEDS: OLUMIANT PO SCH (10:54)
[2021-02-23] MEDS: ENOXAPARIN SODIUM SQ SCH ×2 (10:54→21:27)
[2021-02-23 12:37] LABS: BAND 7 % (0.0-2.0); Lymphocytes 3 % (24-44); Neutrophils 90 % (36.-66.); Platelet Estimate DECREASED (NORMAL); Total Cells Counted 100
[2021-02-23 14:45] LABS: BAND 8 % (0.0-2.0); Lymphocytes 2 % (24-44); Monocyte 4 % (0.0-12.0); Neutrophils 86 % (36.-66.); Total Cells Counted 100
[2021-02-23 14:46] LABS: Platelet Estimate DECREASED (NORMAL)
[2021-02-23] MEDS: APRESOLINE 20 MG/ML INJ IV PRN ×2 (14:46→18:42)
[2021-02-23] MEDS ORDERED: Dextrose 5%/Water IV Soln. 1000 ML 1,000 ML IV ONE (14:54)
[2021-02-23] MEDS ORDERED: Dextrose 5%/Water IV Soln. 250 ML 250 ML IV ONE (14:59)
[2021-02-23] MEDS: CLINIMIX E IV SCH ×5 (15:27)
[2021-02-23] MEDS: [UNRECOGNIZED DRUG - OTHER] IV SCH ×5 (15:27)
[2021-02-23] MEDS: FOLNATE IV SCH ×5 (15:27)
[2021-02-23 15:40] LABS: ATYPICAL LYMPHS 2 %; Lymphocytes 3 % (24-44); Monocyte 2 % (0.0-12.0); Neutrophils 93 % (36.-66.); Platelet Estimate DECREASED (NORMAL); Total Cells Counted 100
[2021-02-24] MEDS: solu-MEDROL IV SCH ×5 (00:43→23:54)
[2021-02-24] MEDS: HUMALOG SQ PRN ×4 (00:44→23:54)
[2021-02-24] MEDS: Ativan 2 MG/1 ML VIAL IV PRN ×5 (00:52→21:28)
[2021-02-24] MEDS: APRESOLINE 20 MG/ML INJ IV PRN (00:52)
[2021-02-24] MEDS: MORPHINE SULFATE 4 MG INJ IV PRN ×5 (03:19→23:32)
[2021-02-24] MEDS: Glucophage 500 MG PO SCH (07:33)
[2021-02-24] MEDS: Glucotrol 5 MG PO SCH (07:33)
[2021-02-24 09:01] LABS: Absolute Neutrophil Ct (ANC) 5.61 (1.4-6.9); Basophil (Absolute #) 0.01 (0-0.4); Eosinophil % 0.2 % (0.00-5.0); Eosinophil (Absolute #) 0.01 (0-0.5); Hematocrit 52.4 % (42-50); Hemoglobin 16.3 gm/dl (12.5-18.0); Lymphocyte (Absolute #) 0.18 (1.0-4.6); Mean Cell Volume 102.1 fl (78-100); Mean Corpuscular Hemoglobin 31.8 pg (26-32); Mean Corpuscular Hgb Concent. 31.1 g/dl (32-36); Mean Platelet Volume 11.7 fl (7.5-11.0); Monocyte (Absolute #) 0.17 (0.0-1.3); Monocytes % 2.8 % (0.0-12.0); Neutrophil % 93.8 % (36.0-66.0); Platelet Count 104 K/mm3 (150-450); Red Blood Count 5.13 M/mm3 (4.1-5.6); Red Cell Distribution Width 13.9 % (11.5-14.0)
[2021-02-24 09:56] LABS: ALBUMIN 2.5 g/dL (3.5-5.0); ALKALINE PHOSPHATASE 96 U/L (38-126); ANION GAP 13.4 MEQ/L (5-15); BLOOD UREA NITROGEN 38 mg/dL (9-20); CHLORIDE 118 mmol/L (98-107); Calcium 8.8 mg/dL (8.4-10.2); Carbon Dioxide 28 mmol/L (22-30); Creatinine 1 0.81 mg/dL (0.66-1.25); EST GLOMERULAR FILTRATION RATE > 60.0 ML/MIN; Glucose 386 mg/dL (74-106); NT PRO BNP 994 pg/mL (0-900); Potassium 4.3 mmol/L (3.5-5.1); SGOT/AST 35 U/L (17-59); SGPT/ALT 26 U/L (0-50); Total Protein 5.4 g/dL (6.3-8.2)
[2021-02-24 10:01] LABS: SODIUM 155 mmol/L (137-145)
[2021-02-24 11:00] LABS: Slide Review 1 YES
[2021-02-24] MEDS: OLUMIANT PO SCH (12:06)
[2021-02-24] MEDS: ENOXAPARIN SODIUM SQ SCH ×2 (12:10→23:21)
[2021-02-24] MEDS ORDERED: Dextrose 5%/Water IV Soln. 1000 ML 1,000 ML IV ONE (14:00)
[2021-02-24] MEDS: Lubrifresh P.M. 3.5 gm Ointment OP SCH ×2 (14:39→23:22)
[2021-02-24] MEDS: FOLNATE IV SCH ×6 (14:53)
[2021-02-24] MEDS: CLINIMIX E IV SCH ×6 (14:53)
[2021-02-24] MEDS: [UNRECOGNIZED DRUG - OTHER] IV SCH ×6 (14:53)
[2021-02-25] MEDS: Ativan 2 MG/1 ML VIAL IV PRN ×4 (01:56→16:24)
[2021-02-25] MEDS: MORPHINE SULFATE 4 MG INJ IV PRN ×5 (04:08→22:03)
[2021-02-25] MEDS: HUMALOG SQ PRN ×4 (05:31→18:19)
[2021-02-25] MEDS: solu-MEDROL IV SCH ×3 (05:31→22:00)
[2021-02-25] MEDS: Dextrose 5%/Water IV Soln. 1000 ML 1,000 ML IV SCH ×2 (06:54→18:30)
[2021-02-25 09:31] LABS: ALBUMIN 2.3 g/dL (3.5-5.0); ALKALINE PHOSPHATASE 97 U/L (38-126); ANION GAP 7.2 MEQ/L (5-15); BLOOD UREA NITROGEN 36 mg/dL (9-20); CHLORIDE 117 mmol/L (98-107); Calcium 8.6 mg/dL (8.4-10.2); Carbon Dioxide 31 mmol/L (22-30); Creatinine 1 0.71 mg/dL (0.66-1.25); EST GLOMERULAR FILTRATION RATE > 60.0 ML/MIN; Glucose 305 mg/dL (74-106); Potassium 4.2 mmol/L (3.5-5.1); SGOT/AST 30 U/L (17-59); SGPT/ALT 23 U/L (0-50); Total Protein 5.3 g/dL (6.3-8.2)
[2021-02-25] MEDS: ENOXAPARIN SODIUM SQ SCH ×2 (09:41→21:59)
[2021-02-25] MEDS: Lubrifresh P.M. 3.5 gm Ointment OP SCH ×2 (09:42→22:00)
[2021-02-25 09:54] LABS: SODIUM 151 mmol/L (137-145)
[2021-02-25] MEDS: [UNRECOGNIZED DRUG - OTHER] IV SCH ×6 (14:01)
[2021-02-25] MEDS: CLINIMIX E IV SCH ×6 (14:01)
[2021-02-25] MEDS: FOLNATE IV SCH ×6 (14:01)
[2021-02-25] MEDS ORDERED: solu-MEDROL 40 MG, Sterile H2O 10 ml 1 ML IV SCH ×2 (20:00)
[2021-02-26] MEDS: HUMALOG SQ PRN ×5 (00:15→17:56)
[2021-02-26] MEDS: Ativan 2 MG/1 ML VIAL IV PRN ×4 (02:17→15:35)
[2021-02-26] MEDS: Dextrose 5%/Water IV Soln. 1000 ML 1,000 ML IV SCH (05:41)
[2021-02-26 06:47] LABS: ALBUMIN 2.3 g/dL (3.5-5.0); ALKALINE PHOSPHATASE 113 U/L (38-126); ANION GAP 6.9 MEQ/L (5-15); BLOOD UREA NITROGEN 32 mg/dL (9-20); CHLORIDE 112 mmol/L (98-107); Calcium 8.4 mg/dL (8.4-10.2); Carbon Dioxide 31 mmol/L (22-30); Creatinine 1 0.67 mg/dL (0.66-1.25); EST GLOMERULAR FILTRATION RATE > 60.0 ML/MIN; Glucose 320 mg/dL (74-106); Potassium 4.5 mmol/L (3.5-5.1); SGOT/AST 34 U/L (17-59); SGPT/ALT 23 U/L (0-50); SODIUM 145 mmol/L (137-145); Total Protein 5.2 g/dL (6.3-8.2)
[2021-02-26] MEDS: solu-MEDROL IV SCH ×3 (06:49→21:55)
[2021-02-26] MEDS: ENOXAPARIN SODIUM SQ SCH ×2 (09:26→21:55)
[2021-02-26] MEDS: Lubrifresh P.M. 3.5 gm Ointment OP SCH ×2 (09:26→21:55)
--- NOTE | 2021-02-26 11:53 | PROG NOTE ---
DATE: 02/25/2021 HISTORY: Not responsive. PHYSICAL EXAMINATION: He does react to pain. He is not moving too much because he is heavily sedated. Prior if he was not sedated he would remove his mask. However, I think that may not be occurring now. HEENT: Pupils about 4 mm, slightly reactive. CHEST: Few crackles bilateral. HEART: Sounds 90 and regular. ABDOMEN: Soft. No masses. NEUROLOGIC: The patient's pupils are 4 mm and slightly reactive. He responds slightly to sternal rub, bilateral Babinski's. LAB DATA AND TESTS: His sodium had been going up and was 152 yesterday and is pending today. Dr. Banerjee added some D5 to get 80 cc/hour and changed to hyperalimentation. He is on maximum support without being intubated. He is on 100% BiPAP. He has remained stable in the 90's on that for the last few days. He was admitted five days ago with hypoxic, unrest at home after being treated as an outpatient for COVID. IMPRESSION: Brain swelling secondary to ischemia and hyponatremia from the brain damage. His white count is normal. D-dimer is elevated. BNP is borderline. Give him Lasix to help increase his sodium. He required Apresoline occasionally for his hypertension. I am going to increase his insulin due to his blood sugar being high being pretty well controlled. PROGNOSIS: Overall, his prognosis is quite poor due to ischemic brain damage, COVID pneumonia, hypertension, diabetes mellitus.
[2021-02-26] MEDS: MORPHINE SULFATE 4 MG INJ IV PRN ×2 (13:38→17:47)
--- NOTE | 2021-02-26 14:29 | PROG NOTE ---
DATE: 02/25/2021 Events noted. HISTORY: The patient remains BiPAP dependent, still on 94% FIO2 on AVAPS mode. Started on TPN. PHYSICAL EXAMINATION: Vital signs noted. Saturating 94%. HEENT: Normocephalic. Oral exam limited. NECK: Supple. CVS: First and second heart sounds are normal, regular, rhythmic. RESPIRATORY: Shows diminished breath sounds. ABDOMEN: Soft. EXTREMITIES: No edema is noted. LABORATORY DATA AND TESTS: Labs reviewed. Sodium 151. ASSESSMENT: This is a 65-year-old male admitted with: 1) Acute/severe hypoxic respiratory failure. 2) COVID-19 with viral pneumonia. 3) Hypertension. 4) Diabetes mellitus. 5) Mild hypernatremia. 6) Uncontrolled hyperglycemia secondary to steroids and TPN. RECOMMENDATIONS: Continue present treatment. Continue noninvasive ventilation. The patient has not shown any meaningful clinical improvement despite aggressive therapy. May initiate reduction in steroids, monitor electrolytes closely. I will continue to follow. ` PROGNOSIS: Remains guarded.
[2021-02-26] MEDS ORDERED: D5W/0.45NS W/ 20mEq KCl 1000 ML 1,000 ML IV SCH (14:30)
[2021-02-26] MEDS: APRESOLINE 20 MG/ML INJ IV PRN (17:31)
[2021-02-26 19:13] LABS: A-aADO2 606; ABG HEMOGLOBIN 18.4; ABG POTASSIUM 4.4 (3.5-5.1); ABG SITE RIGHT BRACHIAL; ARTERIAL BLD GAS O2 SATURATION 86.4 % (95-100); ARTERIAL BLD GAS TIDAL VOLUME 500 cc; ARTERIAL BLOOD GAS FIO2 100 %; ARTERIAL BLOOD GAS PCO2 42 mmHg (35-45); ARTERIAL BLOOD GAS PO2 55 mmHg (75-100); ARTERIAL BLOOD GAS VENT MODE BiPAP; ARTERIAL BLOOD GAS pH 7.48 (7.35-7.45); CARBOXYHEMOGLOBIN 1.3 % THgb (0.0-6.9); HCO3- 31.3 (22-28); HGB O2 SAT 84.3 g/dF (94-100)
[2021-02-26] MEDS ORDERED: SUBLIMAZE 100 MCG/2 ML ONE (19:40)
[2021-02-26] MEDS ORDERED: FENTANYL 500 MCG/10 ML VIAL IV ONE (19:43)
[2021-02-26] MEDS ORDERED: Sodium Chloride 0.9% 150 ML 150 ML IV ONE (19:44)
[2021-02-26] MEDS ORDERED: VERSED 5 MG/5 ML IV ONE ×2 (19:50→20:05)
[2021-02-26] MEDS ORDERED: Quelicin Fliptop 200 MG/10 ML IV ONE (19:50)
[2021-02-26] MEDS ORDERED: Versed 50 MG/ 10 Ml MDV ONE (19:50)
[2021-02-26] MEDS ORDERED: Sodium Chloride 0.9% 250 ML 250 ML IV ONE (19:50)
[2021-02-26] MEDS ORDERED: SUBLIMAZE 100 MCG/2 ML IV ONE (19:50)
[2021-02-26] MEDS: Nimbex 200MG/20 Ml MDV (HIGH RISK MED)** 200 MG in Dextrose 5%/Water IV Soln. 250 ML 18... IV SCH (20:10)
[2021-02-26] MEDS: SUBLIMAZE 1000 Mcg/ 20 Ml*** 1,500 MCG in Sodium Chloride 0.9% 150 ML 120 ML IV SCH (20:10)
[2021-02-26] MEDS: Versed 50 MG/ 10 Ml MDV*** 50 MG in Sodium Chloride 0.9% 250 ML 240 ML IV PRN (20:10)
[2021-02-26] MEDS ORDERED: Dextrose 5% -0.45 NaCl 1000 ML 1,000 ML IV ONE (20:15)
[2021-02-26] MEDS ORDERED: Nimbex 20MG/10 Ml Vial (HIGH RISK MED) IV ONE (20:23)
[2021-02-26] MEDS: Dextrose 5% -0.45 NaCl 1000 ML 1,000 ML IV SCH (20:29)
[2021-02-26] MEDS: Glucophage 500 MG PO SCH (21:50)
[2021-02-26] MEDS: Glucotrol 5 MG PO SCH (21:51)
[2021-02-26 22:37] LABS: A-aADO2 560; ABG HEMOGLOBIN 17.1; ABG POTASSIUM 4.6 (3.5-5.1); ARTERIAL BLD GAS O2 SATURATION 98.2 % (95-100); ARTERIAL BLOOD GAS BASE EXCESS 5.5 (-2.0-2.0); ARTERIAL BLOOD GAS FIO2 100 %; ARTERIAL BLOOD GAS PCO2 51 mmHg (35-45); ARTERIAL BLOOD GAS PO2 89 mmHg (75-100); ARTERIAL BLOOD GAS VENT MODE AC; CARBOXYHEMOGLOBIN 1.5 % THgb (0.0-6.9); HCO3- 31.6 (22-28); HGB O2 SAT 95.6 g/dF (94-100)
[2021-02-26 22:38] LABS: ABG SITE RIGHT BRACHIAL; ARTERIAL BLD GAS TIDAL VOLUME 600 cc; ARTERIAL BLOOD GAS PEEP 10 cmH2O; ARTERIAL BLOOD GAS VENT RATE 18 /MIN
[2021-02-27] MEDS: HUMALOG SQ PRN ×4 (00:21→18:30)
[2021-02-27] MEDS ORDERED: Sodium Chloride 0.9% 500 ML 500 ML IV SCH (00:45)
[2021-02-27] MEDS: FEVERALL 650 MG PR PRN ×4 (02:00→21:37)
[2021-02-27] MEDS ORDERED: PHENYLEPHRINE HCL ONE (04:07)
[2021-02-27] MEDS ORDERED: Dextrose 5%/Water IV Soln. 250 ML 250 ML IV ONE (04:07)
[2021-02-27] MEDS: PHENYLEPHRINE HCL 10 MG in Dextrose 5%/Water IV Soln. 250 ML 250 ML IV PRN ×6 (04:14→20:35)
[2021-02-27 05:24] LABS: Hematocrit 53.7 % (42-50); Hemoglobin 16.6 gm/dl (12.5-18.0); Mean Cell Volume 103.3 fl (78-100); Mean Corpuscular Hemoglobin 31.9 pg (26-32); Mean Corpuscular Hgb Concent. 30.9 g/dl (32-36); Platelet Count 68 K/mm3 (150-450); Red Cell Distribution Width 13.2 % (11.5-14.0); White Blood Count 9.2 K/mm3 (4.0-10.5)
[2021-02-27] MEDS: solu-MEDROL IV SCH ×3 (05:53→21:35)
[2021-02-27 07:16] LABS: Slide Review YES
--- NOTE | 2021-02-27 08:41 | XRAY ---
Indication: Endotracheal tube placement. Comparison: February 21, 2021. Portable chest demonstrates new endotracheal tube tip 4 cm above vito. Remaining chest demonstrates dramatic worsening diffuse bilateral airspace disease. Heart not enlarged.
--- NOTE | 2021-02-27 08:42 | XRAY ---
Indication: Crepitus. Comparison: One day earlier. Portable chest now demonstrates diffuse subcutaneous emphysema, right greater than left. No pneumothorax. Stable endotracheal tube tip 4 cm above vito. Lungs improved with mild clearing of previous diffuse bilateral airspace disease. Remaining heart and lungs unremarkable. Comment: Preliminary interpretation made by [facility] who does not report subcutaneous emphysema. Telephone report given to ordering clinician Dr. Cochran at 0833 hrs on February 27, 2021.
[2021-02-27 10:37] LABS: A-aADO2 543; ABG HEMOGLOBIN 17.5; ABG POTASSIUM 4.5 (3.5-5.1); ABG SITE LEFT RADIAL; ARTERIAL BLD GAS O2 SATURATION 98.8 % (95-100); ARTERIAL BLD GAS TIDAL VOLUME 600 cc; ARTERIAL BLOOD GAS FIO2 100 %; ARTERIAL BLOOD GAS PCO2 47 mmHg (35-45); ARTERIAL BLOOD GAS PO2 111 mmHg (75-100); ARTERIAL BLOOD GAS VENT MODE A/C; ARTERIAL BLOOD GAS VENT RATE 18 /MIN; ARTERIAL BLOOD GAS pH 7.38 (7.35-7.45); CARBOXYHEMOGLOBIN 1.2 % THgb (0.0-6.9); HCO3- 27.8 (22-28); HGB O2 SAT 96.5 g/dF (94-100)
[2021-02-27] MEDS: Lubrifresh P.M. 3.5 gm Ointment OP SCH ×2 (10:43→21:35)
[2021-02-27] MEDS: PERIDEX MM SCH ×2 (10:43→21:35)
[2021-02-27] MEDS: ENOXAPARIN SODIUM SQ SCH ×2 (10:56→21:36)
[2021-02-27] MEDS: Nimbex 200MG/20 Ml MDV (HIGH RISK MED)** 200 MG in Dextrose 5%/Water IV Soln. 250 ML 18... IV SCH ×2 (11:29→17:47)
[2021-02-27] MEDS: SUBLIMAZE 1000 Mcg/ 20 Ml*** 1,500 MCG in Sodium Chloride 0.9% 150 ML 120 ML IV SCH (11:53)
--- NOTE | 2021-02-27 12:33 | PROG NOTE ---
DATE: 02/27/2021 HISTORY: Last night he was intubated due to falling O2, in severe respiratory distress and that went smoothly. However, his blood pressure dropped and now he is on Levophed drip to keep his blood pressure 100/70. I have been in touch with his twice who just left. Sons are going to see him. They may make a decision to discontinue the vent if there is no improvement. Again, he is on full blast Lovenox, Solu-Medrol 60 every six hours. Today, his blood gas on vent was pH 7.4, pCO2 of 51, pO2 89. He was resting. He is asleep. No response to pain. He was paralyzed on pain medicine. Blood sugar 320. Electrolytes were normal. PHYSICAL EXAMINATION: CHEST: Decreased breath sounds but equal. ABDOMEN: No tenderness. No masses. EXTREMITIES: No cyanosis. No edema. IMPRESSION: The patient has severe end-stage COVID with the maximum medication. He is on the ventilator. He is also requiring pressors to keep his blood pressure up, discontinue his hyperalimentation due to fluid overload and the fact that we are having some trouble with the sodium. PROGNOSIS: Guarded. His is a former surgery floor nurse from years ago. She comes in and realizes that and sons are going to see him and may make a decision to discontinue intubation if he is still alive when they are here tomorrow.
[2021-02-27] MEDS: Versed 50 MG/ 10 Ml MDV*** 50 MG in Sodium Chloride 0.9% 250 ML 240 ML IV PRN (17:40)
[2021-02-28] MEDS: PHENYLEPHRINE HCL 10 MG in Dextrose 5%/Water IV Soln. 250 ML 250 ML IV PRN ×6 (00:57→22:31)
[2021-02-28] MEDS: HUMALOG SQ PRN ×5 (01:14→23:40)
[2021-02-28] MEDS: SUBLIMAZE 1000 Mcg/ 20 Ml*** 1,500 MCG in Sodium Chloride 0.9% 150 ML 120 ML IV SCH ×2 (02:00→20:17)
[2021-02-28] MEDS: FEVERALL 650 MG PR PRN ×3 (02:04→20:02)
[2021-02-28 05:19] LABS: A-aADO2 397; ABG HEMOGLOBIN 18.3; ARTERIAL BLD GAS O2 SATURATION 98.5 % (95-100); ARTERIAL BLOOD GAS BASE EXCESS 1.2 (-2.0-2.0); ARTERIAL BLOOD GAS FIO2 80 %; ARTERIAL BLOOD GAS PO2 97 mmHg (75-100); ARTERIAL BLOOD GAS pH 7.29 (7.35-7.45); CARBOXYHEMOGLOBIN 1.6 % THgb (0.0-6.9); HCO3- 29.3 (22-28); HGB O2 SAT 95.9 g/dF (94-100)
[2021-02-28 05:20] LABS: ABG SITE RIGHT RADIAL; ALLEN TEST OK? YES; ARTERIAL BLD GAS TIDAL VOLUME 600 cc; ARTERIAL BLOOD GAS PCO2 61 mmHg (35-45); ARTERIAL BLOOD GAS PEEP 12 cmH2O; ARTERIAL BLOOD GAS VENT MODE AC; ARTERIAL BLOOD GAS VENT RATE 18 /MIN
[2021-02-28] MEDS: solu-MEDROL IV SCH ×3 (05:49→22:34)
[2021-02-28 06:26] LABS: Hematocrit 56.4 % (42-50); Hemoglobin 17.6 gm/dl (12.5-18.0); Mean Corpuscular Hemoglobin 31.8 pg (26-32); Mean Corpuscular Hgb Concent. 31.2 g/dl (32-36); Mean Platelet Volume 12.2 fl (7.5-11.0); Platelet Count 68 K/mm3 (150-450); Red Blood Count 5.53 M/mm3 (4.1-5.6); Red Cell Distribution Width 13.1 % (11.5-14.0)
[2021-02-28 06:55] LABS: ALBUMIN 2.4 g/dL (3.5-5.0); ALKALINE PHOSPHATASE 104 U/L (38-126); BLOOD UREA NITROGEN 40 mg/dL (9-20); CHLORIDE 105 mmol/L (98-107); Calcium 7.6 mg/dL (8.4-10.2); Carbon Dioxide 29 mmol/L (22-30); Creatinine 1 0.94 mg/dL (0.66-1.25); EST GLOMERULAR FILTRATION RATE > 60.0 ML/MIN; Glucose 290 mg/dL (74-106); SGOT/AST 33 U/L (17-59); SGPT/ALT 29 U/L (0-50); SODIUM 136 mmol/L (137-145); Total Protein 5.4 g/dL (6.3-8.2)
[2021-02-28 06:57] LABS: Potassium 5.2 mmol/L (3.5-5.1)
[2021-02-28 07:19] LABS: ANION GAP 7.2 MEQ/L (5-15)
[2021-02-28 08:18] LABS: Slide Review YES
[2021-02-28] MEDS ORDERED: Cardizem IV 50 MG/10 ML IV ONE (08:31)
[2021-02-28] MEDS: CARDIZEM DRIP 100 MG/100 ML D5W 100 ML IV PRN ×2 (08:41→22:31)
--- NOTE | 2021-02-28 08:46 | XRAY ---
Indication: Covid 19 pneumonia. Comparison: February 27, 2021. Portable chest demonstrates new NG tube with tip not included presumed in stomach. Stable endotracheal tube tip 4 cm above vito. Lungs demonstrates new tiny right apical pneumothorax. Otherwise grossly stable diffuse bilateral airspace disease without consolidation/large effusion. Heart not enlarged. Grossly stable bilateral subcutaneous emphysema. Comment: Telephone report was given to patient's nurseChanel at 0840 hrs.
[2021-02-28] MEDS: Motrin 100 MG/5 ML PO PRN ×3 (09:25→23:40)
[2021-02-28] MEDS: ENOXAPARIN SODIUM SQ SCH ×2 (10:32→22:34)
[2021-02-28] MEDS: PERIDEX MM SCH ×2 (10:32→22:34)
[2021-02-28] MEDS: Lubrifresh P.M. 3.5 gm Ointment OP SCH ×2 (10:33→22:34)
[2021-02-28] MEDS ORDERED: LEVOFLOXACIN 750MG/150ML D5W 750 MG/150 ML BAG IV SCH (11:00)
[2021-02-28] MEDS: Versed 50 MG/ 10 Ml MDV*** 50 MG in Sodium Chloride 0.9% 250 ML 240 ML IV PRN ×2 (11:15→23:42)
[2021-02-28] MEDS: Nimbex 200MG/20 Ml MDV (HIGH RISK MED)** 200 MG in Dextrose 5%/Water IV Soln. 250 ML 18... IV SCH ×2 (18:44→23:45)
[2021-02-28] MEDS: Dextrose 5% -0.45 NaCl 1000 ML 1,000 ML IV SCH (18:45)
[2021-03-01] MEDS: PHENYLEPHRINE HCL 10 MG in Dextrose 5%/Water IV Soln. 250 ML 250 ML IV PRN ×4 (00:33→06:16)
[2021-03-01] MEDS: FEVERALL 650 MG PR PRN (04:53)
[2021-03-01 05:49] LABS: A-aADO2 366; ABG HEMOGLOBIN 18.1; ABG POTASSIUM 5.3 (3.5-5.1); ARTERIAL BLD GAS O2 SATURATION 99.1 % (95-100); ARTERIAL BLD GAS TIDAL VOLUME 600 cc; ARTERIAL BLOOD GAS BASE EXCESS 3.7 (-2.0-2.0); ARTERIAL BLOOD GAS FIO2 80 %; ARTERIAL BLOOD GAS PCO2 54 mmHg (35-45); ARTERIAL BLOOD GAS PO2 137 mmHg (75-100); ARTERIAL BLOOD GAS VENT MODE A/C; ARTERIAL BLOOD GAS pH 7.36 (7.35-7.45); CARBOXYHEMOGLOBIN 3.8 % THgb (0.0-6.9); HCO3- 30.5 (22-28); HGB O2 SAT 94.3 g/dF (94-100); Methhemoglobin 1.1 % (1.4-1.5)
[2021-03-01 05:50] LABS: ABG SITE RIGHT BRACHIAL
[2021-03-01 05:53] LABS: Hematocrit 55.5 % (42-50); Hemoglobin 17.3 gm/dl (12.5-18.0); Mean Cell Volume 101.6 fl (78-100); Mean Corpuscular Hemoglobin 31.7 pg (26-32); Mean Corpuscular Hgb Concent. 31.2 g/dl (32-36); Mean Platelet Volume 13.1 fl (7.5-11.0); Platelet Count 86 K/mm3 (150-450); Red Blood Count 5.46 M/mm3 (4.1-5.6)
[2021-03-01 06:05] LABS: ALBUMIN 2.3 g/dL (3.5-5.0); ALKALINE PHOSPHATASE 85 U/L (38-126); ANION GAP 8.2 MEQ/L (5-15); BLOOD UREA NITROGEN 55 mg/dL (9-20); CHLORIDE 99 mmol/L (98-107); Carbon Dioxide 29 mmol/L (22-30); Creatinine 1 1.17 mg/dL (0.66-1.25); EST GLOMERULAR FILTRATION RATE > 60.0 ML/MIN; Glucose 349 mg/dL (74-106); Potassium 5.4 mmol/L (3.5-5.1); SGOT/AST 166 U/L (17-59); SGPT/ALT 119 U/L (0-50); SODIUM 131 mmol/L (137-145); Total Protein 5.2 g/dL (6.3-8.2)
[2021-03-01] MEDS: solu-MEDROL IV SCH ×3 (07:33→20:48)
[2021-03-01] MEDS: HUMALOG SQ PRN ×3 (07:52→17:32)
--- NOTE | 2021-03-01 08:08 | PROG NOTE ---
DATE: 02/28/2021 Events noted. HISTORY: The patient got progressively more hypoxic leading to intubation. Post-intubation he has been placed on sedation. His blood gases did show marginal improvement although we have been unable to wean him down below 80% on FIO2. He currently remains sedated on mechanical ventilator. In addition, the patient developed temperature spike of 102F. He has also required pressors to keep his blood pressure up. His urinary output seems to be declining throughout the day today. Other events noted. The family has signed Do Not Resuscitate. PHYSICAL EXAMINATION: Temperature current is 102F, heart rate 100, blood pressure 114/76. Saturating 94%. HEENT: Normocephalic. Oral exam limited. ET tube and OG tube are in place. Skin breakdown on nose is noted from persistent BiPAP use which is crusting. NECK: Supple. CVS: First and second heart sounds are normal, regular, rhythmic. RESPIRATORY: Shows diminished breath sounds. ABDOMEN: Soft. EXTREMITIES: No significant edema is noted. LABORATORY DATA AND TESTS: White count is 9, hemoglobin 17.6, hematocrit 56, PLT 68,000. D-dimer is 4549. Sodium 136, potassium 5.2, chloride 105, bicarb 29, glucose 219, BUN of 40 creatinine 0.94. ABG reviewed pH 7.29, pCO2 61, pO2 of 97 on assist control rate of 18, tidal volume of 600, FIO2 80%, PEEP 12. Chest x-ray noted and showed tiny right apical pneumothorax. ASSESSMENT: This is a 65-year-old male admitted with: 1) Acute severe persistent hypoxic respiratory failure. 2) COVID-19 with viral pneumonia. 3) Right small pneumothorax likely from barotrauma being monitored. 4) Hypotension with sepsis likely from secondary infection. 5) History of diabetes mellitus. RECOMMENDATIONS: 1) Continue present treatment. The patient's gas exchange is marginal to reduce FIO2 aggressively. 2) Continue pressors and broad spectrum antibiotics. 3) The patient's overall condition has deteriorated significantly in the past few days despite aggressive therapy. Unfortunately his prognosis appears poor. The family has requested comfort measures although they do not wish to add any more intervention at this point. I will respect their wishes. Discussed with nursing staff.
[2021-03-01] MEDS: LEVOPHED 4 MG/4 ML 4,000 MCG in Dextrose 5%/Water IV Soln. 500 ML 500 ML IV PRN ×2 (08:21→20:47)
[2021-03-01 08:37] LABS: Slide Review YES
--- NOTE | 2021-03-01 08:40 | XRAY ---
Indication: Over 19 pneumonia. Comparison: One day earlier. Portable chest again demonstrates NG tube tip 4 cm above vito and NG tube tip presumed in stomach. There is interval worsening diffuse bilateral chest subcutaneous emphysema. Lungs demonstrate grossly stable diffuse bilateral airspace disease and tiny right apical pneumothorax. Heart not enlarged with worsening CT proven pneumomediastinum. No new cardiopulmonary abnormalities. Impression: 1. Worsening diffuse bilateral subcutaneous emphysema and pneumomediastinum. 2. Stable tiny right apical pneumothorax, bilateral airspace disease, NG tube, and endotracheal tube.
[2021-03-01] MEDS: ENOXAPARIN SODIUM SQ SCH (09:01)
[2021-03-01] MEDS: Lubrifresh P.M. 3.5 gm Ointment OP SCH ×2 (09:01→21:03)
[2021-03-01] MEDS: PERIDEX MM SCH ×2 (09:01→20:47)
[2021-03-01] MEDS ORDERED: LEVOFLOXACIN 750MG/150ML D5W 750 MG/150 ML BAG IV SCH (10:00)
[2021-03-01] MEDS: PROTONIX 40 MG IV IV SCH (11:04)
--- NOTE | 2021-03-01 13:40 | PROG NOTE ---
DATE: 03/01/2021 Events noted. HISTORY: The patient remains on mechanical ventilator, sedated, lightly paralyzed. Pressors were changed to Levophed this morning. He otherwise has remained critical but stable over the past 48 hours. PHYSICAL EXAMINATION: His temperature spikes have reduced to 100.4F, heart rate is currently 110, blood pressure 94/76. Saturating 95%. HEENT: Normocephalic. Pupils are sluggishly reactive. ET and OG tube are in place. NECK: Supple. CVS: First and second heart sounds are normal, regular, rhythmic. RESPIRATORY: Shows diminished breath sounds, posterior crackles are heard. ABDOMEN: Soft. EXTREMITIES: No edema is noted. : Dior catheter is in place. LABORATORY DATA AND TESTS: Urine output reviewed. Labs reviewed. White count is 14. BUN 55, creatinine 1.1. D-dimer 1903. The pH 7.36, pCO2 54, pO2 137. Chest x-ray reviewed, reported as worsening bilateral infiltrate with pneumomediastinum. ASSESSMENT: This is a 65-year-old male admitted with: 1) Acute severe hypoxic respiratory failure. The patient remains on mechanical ventilator still on 80% with PEEP of 10. 2) COVID-19. 3) Sepsis with septic shock on pressors. 4) History of hypertension. RECOMMENDATIONS: Continue present treatment as noted above. The patient's gas exchange has remained stable although he is still on high FIO2 requirement. Continue antibiotics, pressors, will initiate nutritional support with tube feeds. Condition is critical but fairly stable over past 24 hours. I will continue to follow. I will be available on weekend as needed.
[2021-03-01] MEDS: Versed 50 MG/ 10 Ml MDV*** 50 MG in Sodium Chloride 0.9% 250 ML 240 ML IV PRN (14:53)
[2021-03-01] MEDS: SUBLIMAZE 1000 Mcg/ 20 Ml*** 1,500 MCG in Sodium Chloride 0.9% 150 ML 120 ML IV SCH (14:54)
[2021-03-01] MEDS: Motrin 100 MG/5 ML PO PRN (20:49)
[2021-03-02 05:04] LABS: A-aADO2 358; ABG HEMOGLOBIN 17.2; ABG POTASSIUM 5.9 (3.5-5.1); ABG SITE RIGHT BRACHIAL; ARTERIAL BLD GAS O2 SATURATION 99.5 % (95-100); ARTERIAL BLD GAS TIDAL VOLUME 600 cc; ARTERIAL BLOOD GAS BASE EXCESS -3.9 (-2.0-2.0); ARTERIAL BLOOD GAS FIO2 80 %; ARTERIAL BLOOD GAS PCO2 53 mmHg (35-45); ARTERIAL BLOOD GAS PO2 146 mmHg (75-100); ARTERIAL BLOOD GAS VENT MODE A/C; ARTERIAL BLOOD GAS pH 7.26 (7.35-7.45); CARBOXYHEMOGLOBIN 3.5 % THgb (0.0-6.9); HCO3- 23.8 (22-28); HGB O2 SAT 94.9 g/dF (94-100); Methhemoglobin 1.1 % (1.4-1.5)
[2021-03-02 05:27] LABS: Hematocrit 52.9 % (42-50); Hemoglobin 16.4 gm/dl (12.5-18.0); Mean Cell Volume 102.5 fl (78-100); Mean Corpuscular Hemoglobin 31.8 pg (26-32); Mean Platelet Volume 13.7 fl (7.5-11.0); Platelet Count 83 K/mm3 (150-450); Red Blood Count 5.16 M/mm3 (4.1-5.6); Red Cell Distribution Width 13.1 % (11.5-14.0)
[2021-03-02 06:02] LABS: ALBUMIN 2.1 g/dL (3.5-5.0); ANION GAP 13.3 MEQ/L (5-15); Calcium 6.8 mg/dL (8.4-10.2); Potassium 5.7 mmol/L (3.5-5.1); Total Protein 4.8 g/dL (6.3-8.2)
[2021-03-02 06:08] LABS: Creatinine 1 3.44 mg/dL (0.66-1.25); EST GLOMERULAR FILTRATION RATE 19.2 ML/MIN
[2021-03-02] MEDS: LEVOPHED 4 MG/4 ML 4,000 MCG in Dextrose 5%/Water IV Soln. 500 ML 500 ML IV PRN ×3 (07:47→18:14)
[2021-03-02] MEDS: SUBLIMAZE 1000 Mcg/ 20 Ml*** 1,500 MCG in Sodium Chloride 0.9% 150 ML 120 ML IV SCH ×2 (07:48→21:17)
[2021-03-02] MEDS: HUMALOG SQ PRN ×3 (07:54→17:39)
[2021-03-02] MEDS: solu-MEDROL IV SCH ×3 (07:55→21:16)
[2021-03-02] MEDS: PERIDEX MM SCH ×2 (07:55→21:16)
[2021-03-02] MEDS: FEVERALL 650 MG PR PRN ×2 (07:55→13:17)
[2021-03-02] MEDS: ENOXAPARIN SODIUM SQ SCH (07:56)
--- NOTE | 2021-03-02 08:42 | XRAY ---
Indication: Covid 19 pneumonia. Comparison: One day earlier. Portable chest demonstrates dramatic worsening significant diffuse bilateral subcutaneous emphysema. Grossly stable mild diffuse bilateral airspace disease, tiny right apical pneumothorax, endotracheal tube, and NG tube. Heart not enlarged. No new cardiopulmonary abnormalities.
[2021-03-02] MEDS: Zosyn 2.25 GM 2.25 GM in Sodium Chloride 100ML MINI-BAG PLUS 100 ML IV SCH ×2 (09:51→17:27)
[2021-03-02] MEDS: PROTONIX 40 MG IV IV SCH (09:53)
[2021-03-02] MEDS: Lubrifresh P.M. 3.5 gm Ointment OP SCH ×2 (09:53→21:17)
[2021-03-02] MEDS ORDERED: Zosyn 3.375 GM Vial 3.375 GM in Sodium Chloride 100ML MINI-BAG PLUS 100 ML IV SCH (14:00)
[2021-03-03] MEDS: HUMALOG SQ PRN ×3 (00:20→12:26)
[2021-03-03] MEDS: Zosyn 2.25 GM 2.25 GM in Sodium Chloride 100ML MINI-BAG PLUS 100 ML IV SCH ×3 (02:26→17:24)
[2021-03-03] MEDS: LEVOPHED 4 MG/4 ML 4,000 MCG in Dextrose 5%/Water IV Soln. 500 ML 500 ML IV PRN ×5 (03:18→22:15)
[2021-03-03 05:04] LABS: A-aADO2 217; ABG HEMOGLOBIN 16.8; ABG POTASSIUM 5.3 (3.5-5.1); ARTERIAL BLD GAS O2 SATURATION 98.2 % (95-100); ARTERIAL BLD GAS TIDAL VOLUME 600 cc; ARTERIAL BLOOD GAS BASE EXCESS -0.8 (-2.0-2.0); ARTERIAL BLOOD GAS FIO2 50 %; ARTERIAL BLOOD GAS PCO2 41 mmHg (35-45); ARTERIAL BLOOD GAS PO2 88 mmHg (75-100); ARTERIAL BLOOD GAS VENT MODE A/C; ARTERIAL BLOOD GAS pH 7.38 (7.35-7.45); CARBOXYHEMOGLOBIN 4.7 % THgb (0.0-6.9); HCO3- 24.3 (22-28); HGB O2 SAT 92.7 g/dF (94-100); Methhemoglobin 0.9 % (1.4-1.5)
[2021-03-03 05:05] LABS: ABG SITE RIGHT RADIAL; ALLEN TEST OK? YES; ARTERIAL BLOOD GAS VENT RATE 18 /MIN
[2021-03-03 06:34] LABS: ALBUMIN 2.1 g/dL (3.5-5.0); ANION GAP 11.2 MEQ/L (5-15); BILIRUBIN,TOTAL 1.5 mg/dL (0.2-1.3); Calcium 6.6 mg/dL (8.4-10.2); Potassium 5.2 mmol/L (3.5-5.1); Total Protein 4.5 g/dL (6.3-8.2)
[2021-03-03] MEDS: solu-MEDROL IV SCH ×3 (06:37→22:11)
[2021-03-03 06:41] LABS: Creatinine 1 3.65 mg/dL (0.66-1.25); EST GLOMERULAR FILTRATION RATE 17.9 ML/MIN
--- NOTE | 2021-03-03 08:45 | XRAY ---
Indication: Covid 19 pneumonia. Comparison: One day earlier. Portable chest continues to demonstrate worsening diffuse bilateral subcutaneous emphysema, now limiting evaluation of lungs and previous right apical pneumothorax. No obvious pneumothorax. Grossly stable mild diffuse bilateral airspace disease, endotracheal tube, and NG tube. Heart not enlarged. No new cardiopulmonary abnormalities.
[2021-03-03] MEDS: ENOXAPARIN SODIUM SQ SCH (10:18)
[2021-03-03] MEDS: PROTONIX 40 MG IV IV SCH (10:18)
[2021-03-03] MEDS: PERIDEX MM SCH ×2 (10:18→22:11)
[2021-03-03] MEDS: Lubrifresh P.M. 3.5 gm Ointment OP SCH ×2 (10:19→22:11)
[2021-03-03] MEDS: LEVOFLOXACIN 750MG/150ML D5W 750 MG/150 ML BAG IV SCH (11:04)
[2021-03-03] MEDS: Versed 50 MG/ 10 Ml MDV*** 50 MG in Sodium Chloride 0.9% 250 ML 240 ML IV PRN (11:34)
[2021-03-03] MEDS: SUBLIMAZE 1000 Mcg/ 20 Ml*** 1,500 MCG in Sodium Chloride 0.9% 150 ML 120 ML IV SCH (19:50)
[2021-03-04] MEDS: HUMALOG SQ PRN ×2 (00:02→06:18)
[2021-03-04] MEDS: Zosyn 2.25 GM 2.25 GM in Sodium Chloride 100ML MINI-BAG PLUS 100 ML IV SCH ×3 (01:54→18:45)
[2021-03-04] MEDS: LEVOPHED 4 MG/4 ML 4,000 MCG in Dextrose 5%/Water IV Soln. 500 ML 500 ML IV PRN ×3 (03:06→10:10)
[2021-03-04 03:12] LABS: A-aADO2 476; ABG HEMOGLOBIN 15.3; ABG POTASSIUM 5.4 (3.5-5.1); ABG SITE LEFT RADIAL; ALLEN TEST OK? YES; ARTERIAL BLD GAS O2 SATURATION 98.6 % (95-100); ARTERIAL BLD GAS TIDAL VOLUME 600 cc; ARTERIAL BLOOD GAS BASE EXCESS -1.2 (-2.0-2.0); ARTERIAL BLOOD GAS FIO2 90 %; ARTERIAL BLOOD GAS PCO2 51 mmHg (35-45); ARTERIAL BLOOD GAS PO2 102 mmHg (75-100); ARTERIAL BLOOD GAS VENT MODE A/C; ARTERIAL BLOOD GAS VENT RATE 18 /MIN; ARTERIAL BLOOD GAS pH 7.31 (7.35-7.45); CARBOXYHEMOGLOBIN 0.9 % THgb (0.0-6.9); HCO3- 25.7 (22-28); HGB O2 SAT 96.6 g/dF (94-100); Methhemoglobin 1.1 % (1.4-1.5)
[2021-03-04] MEDS: solu-MEDROL IV SCH ×3 (06:12→21:35)
--- NOTE | 2021-03-04 08:42 | XRAY ---
Indication: Covid 19 pneumonia. Comparison: One day earlier. Portable chest again demonstrates markedly diffuse bilateral subcutaneous emphysema limiting evaluation of lungs and previous tiny right apical pneumothorax. There is now approximately 50% left pneumothorax. Grossly stable diffuse bilateral airspace disease, endotracheal tube, and NG tube. Heart and mediastinal structures within normal limits and not shifted. Comment: Preliminary interpretation made by [facility]. No critical discrepancy.
[2021-03-04 09:38] LABS: Hematocrit 49.4 % (42-50); Hemoglobin 15.9 gm/dl (12.5-18.0); Mean Cell Volume 98.6 fl (78-100); Mean Corpuscular Hemoglobin 31.7 pg (26-32); Mean Corpuscular Hgb Concent. 32.2 g/dl (32-36); Mean Platelet Volume 13.8 fl (7.5-11.0); Platelet Count 64 K/mm3 (150-450); Red Blood Count 5.01 M/mm3 (4.1-5.6); Red Cell Distribution Width 13.4 % (11.5-14.0); White Blood Count 18.3 K/mm3 (4.0-10.5)
[2021-03-04] MEDS: PERIDEX MM SCH ×2 (10:03→21:35)
[2021-03-04] MEDS: ENOXAPARIN SODIUM SQ SCH (10:03)
[2021-03-04] MEDS: PROTONIX 40 MG IV IV SCH (10:04)
[2021-03-04] MEDS: Lubrifresh P.M. 3.5 gm Ointment OP SCH ×2 (10:04→21:35)
[2021-03-04 12:16] LABS: Slide Review YES
[2021-03-04] MEDS: Versed 50 MG/ 10 Ml MDV*** 50 MG in Sodium Chloride 0.9% 250 ML 240 ML IV PRN (12:30)
[2021-03-04] MEDS ORDERED: DEXTROSE IV PRN (13:36)
[2021-03-04] MEDS ORDERED: WATER IV PRN (13:36)
[2021-03-04] MEDS ORDERED: LEVOPHED IV PRN (13:36)
[2021-03-04] MEDS: WATER IV PRN ×2 (13:54→20:39)
[2021-03-04] MEDS: LEVOPHED IV PRN ×2 (13:54→20:39)
[2021-03-04] MEDS: DEXTROSE IV PRN ×2 (13:54→20:39)
[2021-03-04] MEDS: SUBLIMAZE 1000 Mcg/ 20 Ml*** 1,500 MCG in Sodium Chloride 0.9% 150 ML 120 ML IV SCH (15:16)
[2021-03-05] MEDS: HUMALOG SQ PRN ×3 (00:21→07:48)
[2021-03-05] MEDS: Zosyn 2.25 GM 2.25 GM in Sodium Chloride 100ML MINI-BAG PLUS 100 ML IV SCH (02:27)
[2021-03-05] MEDS: WATER IV PRN ×2 (03:06→11:01)
[2021-03-05] MEDS: LEVOPHED IV PRN ×2 (03:06→11:01)
[2021-03-05] MEDS: DEXTROSE IV PRN ×2 (03:06→11:01)
[2021-03-05 04:25] LABS: ALBUMIN 2.3 g/dL (3.5-5.0); ANION GAP 7.6 MEQ/L (5-15); BILIRUBIN,TOTAL 1.4 mg/dL (0.2-1.3); Calcium 6.6 mg/dL (8.4-10.2); Potassium 5.8 mmol/L (3.5-5.1)
[2021-03-05 04:31] LABS: Creatinine 1 1.88 mg/dL (0.66-1.25); EST GLOMERULAR FILTRATION RATE 38.5 ML/MIN
[2021-03-05 04:32] LABS: A-aADO2 431; ABG POTASSIUM 5.9 (3.5-5.1); ABG SITE RIGHT RADIAL; ARTERIAL BLD GAS O2 SATURATION 99.3 % (95-100); ARTERIAL BLD GAS TIDAL VOLUME 600 cc; ARTERIAL BLOOD GAS BASE EXCESS 2.8 (-2.0-2.0); ARTERIAL BLOOD GAS FIO2 90 %; ARTERIAL BLOOD GAS PCO2 52 mmHg (35-45); ARTERIAL BLOOD GAS PO2 146 mmHg (75-100); ARTERIAL BLOOD GAS VENT MODE A/C; ARTERIAL BLOOD GAS pH 7.36 (7.35-7.45); CARBOXYHEMOGLOBIN 3.4 % THgb (0.0-6.9); HCO3- 29.4 (22-28); HGB O2 SAT 94.6 g/dF (94-100); Methhemoglobin 1.3 % (1.4-1.5)
[2021-03-05] MEDS: solu-MEDROL IV SCH (06:04)
[2021-03-05] MEDS: SUBLIMAZE 1000 Mcg/ 20 Ml*** 1,500 MCG in Sodium Chloride 0.9% 150 ML 120 ML IV SCH (09:01)
[2021-03-05] MEDS: ENOXAPARIN SODIUM SQ SCH (09:01)
[2021-03-05] MEDS: FEVERALL 650 MG PR PRN (09:01)
[2021-03-05] MEDS: PERIDEX MM SCH (09:01)
[2021-03-05] MEDS: PROTONIX 40 MG IV IV SCH (09:01)
[2021-03-05] MEDS: LEVOFLOXACIN 750MG/150ML D5W 750 MG/150 ML BAG IV SCH (09:04)
[2021-03-05] MEDS: Lubrifresh P.M. 3.5 gm Ointment OP SCH (09:08)
[2021-03-05 10:08] VITALS: PULSE 163
[2021-03-05 11:10] VITALS: O2SAT 95
[2021-03-05] MEDS: Nimbex 200MG/20 Ml MDV (HIGH RISK MED)** 200 MG in Dextrose 5%/Water IV Soln. 250 ML 18... IV SCH (11:32)
[2021-03-05 12:02] VITALS: BP 100/66
--- NOTE | 2021-03-05 12:33 | PROG NOTE ---
DATE: 03/04/2021 HISTORY: The patient's O2 dropped from 90 to 50% last night. A chest x-ray showed left pneumothorax about 30% of that lung is down. I am presently awaiting for a call from the , both phone numbers went to answering service, to discuss putting in a chest tube. She wants to take him off the vent is what she told me for two days and is waiting for a sister to show up on Friday. I think that should be weighed into her decision whether we put a chest tube in or not. It certainly would be a procedure that is low risk and would most likely keep him alive. I am afraid the lung will go down without it. Presently, he is not responsive to pain. He is in no pain. He is on antibiotics as his white count went up several days after he was admitted with bilateral COVID pneumonia. He arrived and basically I believe in anoxic situation where he fell at home. His O2 saturation was unregisterable when they picked him up. Before he had to be intubated he would make purposeful movements and remove his masks. Besides that there was no real interactions with help or . Today, his blood gas is 7.31, pCO2 of 51, pO2 of 102. He has subcutaneous emphysema especially on the right side, moderately severe pneumothorax on the left, tiny right pneumothorax which does not have to be treated at this time, diffuse airspace disease. PHYSICAL EXAMINATION: He is on 100% oxygen. FIO2 in the low 90's. CHEST: Few crackles. Decreased breath sounds bilateral. CVS: Heart sounds are regular. PLAN: Awaiting direction from his whether to put the chest tube in. Again, she feels pretty strongly she wants to discontinue care after her sister gets here supposedly on Friday. I have not been able to reach her so will hold off on supportive therapy at this time.
== END 2021-03-05 14:37 | disposition expired | DRG 177 ==
LOC: ED 01:51 → MED SURG 04:13
PROVIDERS: ADMIT Family Medicine; ATTEND Family Medicine
DX: U07.1 COVID-19 (principal); J12.82 Pneumonia due to coronavirus disease 2019; J96.01 Acute respiratory failure with hypoxia; A41.9 Sepsis, unspecified organism; R65.21 Severe sepsis with septic shock; I67.82 Cerebral ischemia; J93.9 Pneumothorax, unspecified; E87.1 Hypo-osmolality and hyponatremia; J44.9 Chronic obstructive pulmonary disease, unspecified; I10 Essential (primary) hypertension; E11.9 Type 2 diabetes mellitus without complications; Z79.899 Other long term (current) drug therapy; Z79.01 Long term (current) use of anticoagulants
CPT/HCPCS: 31500; 36000; 36415; 36600; 51702; 71045; 80053; 81001; 82375; 82803; 82947; 83036; 83605; 83735; 83880; 84484; 85025; 85027; 85379; 85610; 86140; 87086; 93005; 94002; 94003; 94762; 94770; 96374; 99284; J0330; J0360; J1100; J1650; J1817; J1940; J1956; J2060; J2250; J2270; J2370; J2543; J2920; J2930; J3010; J3420; A9270-GY